=== PATIENT | female | born 1955 | race Caucasian/White ===

== ENCOUNTER 2017-05-13 12:42 | Outpatient (CLI) | payer OTHER ==
--- NOTE | 2017-05-13 14:21 | MRI ---
LUMBAR SPINE MRI WITHOUT CONTRAST: Date: 05-13-17 Comparison: None. History: Left lower extremity radiculopathy, lumbar radiculopathy, left leg pain. Technique: Multiplanar, multisequence MR imaging of the lumbar spine is obtained without contrast. FINDINGS: The sagittal STIR imaging demonstrates no focal areas of osseous marrow edema. There is fluid signal intensity within the left facet joint at the L4-5 level. There is no significant anterolisthesis or retrolisthesis within the lumbar spine. Assuming five lumbar type vertebral bodies, conus medullaris terminates at T12-L1. T12-L1: There is mild disc space narrowing and disc desiccation. There is anterior osteophyte formati on and mild bilateral facet hypertrophy with no significant central canal or neural foraminal stenosi s. L1-2: Mild bilateral facet hypertrophy noted. There is anterior osteophyte formation. Intervertebral disc height and signal intensity appears within normal limits. No significant central canal or neural foraminal stenosis. L2-3: There is mild bilateral facet hypertrophy. There is mild disc space narrowing and disc desiccat ion with mild disc bulge and anterior osteophyte formation. No significant central canal stenosis or neural foraminal stenosis. L3-4: Mild bilateral facet hypertrophy and hypertrophy of ligamentum flavum. There is disc space narr owing and disc desiccation with mild disc bulge and anterior osteophyte formation. There is a small f oraminal disc protrusion. There is mild left neural foraminal stenosis. No significant right neural f oraminal stenosis. L4-5: There is bilateral facet hypertrophy and hypertrophy of ligamentum flavum, right greater than l eft. Mild central canal stenosis. Mild bilateral neural foraminal stenosis. L5-S1: There is prominent facet hypertrophy bilaterally, particularly in the left. There is a promine nt osteophyte which extends into the left neural foramen from the left facet joint. This abuts the ex iting left L5 nerve root with moderate left neural foraminal stenosis. No significant central canal s tenosis. Mild right neural foraminal stenosis. The imaged retroperitoneal structures appear grossly unremarkable. Benign hemangioma noted at L3. IMPRESSION: There is multilevel degenerative change noted within the lumbar spine, most significant at L5-S1. Thi s includes significant neural foraminal stenosis at L5-S1 on the left, primarily on the basis of face t hypertrophic change. POS: [facility]
== END 2017-05-13 12:43 | disposition home or self-care (01) ==
LOC: TBSIIMAG 12:42
PROVIDERS: ATTEND Neurological Surgery
DX: M47.26 Other spondylosis with radiculopathy, lumbar region (principal); M48.07 Spinal stenosis, lumbosacral region
CPT/HCPCS: 72148